=== PATIENT | female | born 1985 | race American Indian/Alaskan Native ===

== ENCOUNTER 2019-08-02 14:42 | Emergency (ER) | payer OTHER ==
--- NOTE | 2019-08-02 15:10 | Event Note ---
ED Screening Note Date of service: 08/02/19 Time: 15:08 ED Screening Note: 34 y o female presents with left sided pelvis pain x 3 days worsening with movement IUD in 2018 in [place] This initial assessment/diagnostic orders/clinical plan/treatment(s) is/are subject to change based on patients health status, clinical progression and re- assessment by fellow clinical providers in the ED. Further treatment and workup at subsequent clinical providers discretion. Patient/guardian urged not to elope from the ED as their condition may be serious if not clinically assessed and managed. Initial orders include: ua
[2019-08-02 16:03] LABS: Bilirubin,Urine NEG (Negative); Blood,Urine NEG (Negative); Color,Urine Yellow (Yellow); Mucus,Urine 1+ /HPF; Protein,Urine <15 mg/dL mg/dL (Negative)
[2019-08-02 21:26] LABS: Hematocrit 40.2 % (30.3-42.9); Hemoglobin 13.5 gm/dl (10.1-14.3); Mean Corpuscular HGB Conc 34 % (30-34); Mean Corpuscular Volume 97 fl (79-97); Platelet Count 299 K/mm3 (140-440); Red Blood Count 4.17 M/mm3 (3.65-5.03); Red Cell Distribution Width 13.1 % (13.2-15.2)
--- NOTE | 2019-08-02 23:03 | Ultrasound Report ---
EXAMINATION: Complete pelvic ultrasound, 08/02/2019 CLINICAL INFORMATION: Generalized pelvic pain COMPARISON: None. FINDINGS: Transvaginal and transabdominal evaluation was performed. The uterus is normal in size tracie uring 7.4 x 4.0 x 5.1 cm. An IUD is present. The bilateral adnexal regions appear within normal limits. There are bilateral adnexal cysts. The lar gest cyst on the right measures 1.7 cm and is mildly complicated. The largest cyst on the left measur es 1.9 cm. No free pelvic fluid is visualized. Doppler flow is demonstrated to both adnexal regions. IMPRESSION: 1. No sonographic evidence of acute intrapelvic abnormality. 2. Bilateral adnexal cysts. Signer Name: Katherine Lynn MD Signed: 08/02/2019 10:59 PM Workstation Name: [id number]
[2019-08-02] MEDS ORDERED: traMADol 50 MG TAB PO ONE (23:04)
--- NOTE | 2019-08-02 23:09 | Emergency Department Report ---
<MAJO UMANZOR - Last Filed: 08/02/19 23:29> ED Female HPI - General Chief complaint: Abdominal Pain Stated complaint: ABD PAIN/POSS IUD MISS PLACED Time Seen by Provider: 08/02/19 21:05 Source: patient Mode of arrival: Ambulatory Limitations: No Limitations - History of Present Illness Initial comments: PT is a 34 y/ o female who presents with left sided pelvis pain x 3 days , hx of ovarian cyst and IUD, pain is 3/10 cramping worsening with movement. IUD in 2018 in [place]. There is no fever or chills no n/v no back pain, no vaginal bleeding or discharge, pt is and not concerned for STI. pt requesting referral to [facility] for IUD Removal. LMP 2 weeks ago, could not fell string after menses completed. MD Complaint: pelvic pain, other Onset/Timin -: week(s), unknown (chronic over last 1 yr) Radiation: non-radiating Severity: mild Severity scale (0 -10): 3 Quality: cramping Consistency: intermittent Improves with: none Worsens with: movement Are you Now?: No Last Menstrual Period: 07/17/19 EDC: 04/22/20 - Related Data Sexually active: Yes : 1 Para: 1 A: 0 Previous Rx's Medication Instructions Recorded Last Taken Type traMADoL [Ultram] 50 mg PO Q6HR PRN #12 tablet 08/02/19 Unknown Rx Allergies Allergy/AdvReac Type Severity Reaction Status Date / Time amoxicillin Allergy Rash Verified 08/02/19 14:47 Penicillins Allergy Rash Verified 08/02/19 14:47 ED Review of Systems Constitutional: denies: chills, fever Eyes: denies: eye pain, eye discharge, vision change ENT: denies: ear pain, throat pain Respiratory: denies: cough, shortness of breath, wheezing Cardiovascular: denies: chest pain, palpitations Endocrine: no symptoms reported Gastrointestinal: denies: abdominal pain, nausea, diarrhea Genitourinary: denies: urgency, dysuria, frequency, hematuria, discharge, dyspareunia Musculoskeletal: denies: back pain, joint swelling, arthralgia Skin: denies: rash, lesions Neurological: denies: headache, weakness, paresthesias Psychiatric: denies: anxiety, depression Hematological/Lymphatic: as per HPI ED Past Medical Hx - Past Medical History Previous Medical History?: No - Surgical History Past Surgical History?: No - Social History Smoking Status: Never Smoker Substance Use Type: None - Medications Home Medications: Home Medications Medication Instructions Recorded Confirmed Last Taken Type traMADoL [Ultram] 50 mg PO Q6HR PRN #12 tablet 08/02/19 Unknown Rx ED Physical Exam - General Limitations: No Limitations General appearance: alert, in no apparent distress - Head Head exam: Present: atraumatic, normocephalic - Eye Eye exam: Present: normal appearance, EOMI - ENT ENT exam: Present: mucous membranes moist - Neck Neck exam: Present: normal inspection, full ROM. Absent: tenderness - Respiratory Respiratory exam: Present: normal lung sounds bilaterally. Absent: respiratory distress, wheezes - Cardiovascular Cardiovascular Exam: Present: regular rate, normal rhythm, normal heart sounds. Absent: systolic murmur, diastolic murmur, rubs, gallop - GI/Abdominal GI/Abdominal exam: Present: soft, normal bowel sounds. Absent: distended, tenderness, guarding, rebound, rigid, bruit, hernia - Rectal Rectal exam: Present: deferred - External exam: Present: other (deferred by patient ) - Extremities Exam Extremities exam: Present: normal inspection, full ROM. Absent: tenderness - Back Exam Back exam: Present: normal inspection, full ROM. Absent: tenderness, CVA tenderness (R), CVA tenderness (L) - Neurological Exam Neurological exam: Present: alert, oriented X3, CN II-XII intact, normal gait - Psychiatric Psychiatric exam: Present: normal affect, normal mood - Skin Skin exam: Present: warm ED Medical Decision Making - Lab Data Result diagrams: 08/02/19 21:15 - Radiology Data Radiology results: report reviewed, image reviewed Ordering Physician: MAJO UMANZOR NP Date of Service: 08/02/19 Procedure(s): US transvaginal Accession Number(s): [id number] cc: MAJO UMANZOR NP EXAMINATION: Complete pelvic ultrasound, 08/02/2019 CLINICAL INFORMATION: Generalized pelvic pain COMPARISON: None. FINDINGS: Transvaginal and transabdominal evaluation was performed. The uterus is normal in size measuring 7.4 x 4.0 x 5.1 cm. An IUD is present. The bilateral adnexal regions appear within normal limits. There are bilateral adnexal cysts. The largest cyst on the right measures 1.7 cm and is mildly complicated. The largest cyst on the left measures 1.9 cm. No free pelvic fluid is visualized. Doppler flow is demon strated to both adnexal regions. IMPRESSION: 1. No sonographic evidence of acute intrapelvic abnormality. 2. Bilateral adnexal cysts. Signer Name: Katherine Lynn MD Signed: 08/02/2019 10:59 PM Workstation Name: [id number] Transcribed By: ALCON Dictated By: Katherine Lynn MD Electronically Authenticated By: Katherine Lynn MD Signed Date/Time: 08/02/192258 DD/ 55 TD/TT: Ordering Physician: MAJO UMANZOR NP Date of Service: 08/02/19 Procedure(s): US pelvic complete Accession Number(s): [id number] cc: MAJO UMANZOR NP EXAMINATION: Complete pelvic ultrasound, 08/02/2019 CLINICAL INFORMATION: Generalized pelvic pain COMPARISON: None. FINDINGS: Transvaginal and transabdominal evaluation was performed. The uterus is normal in size measuring 7.4 x 4.0 x 5.1 cm. An IUD is present. The bilateral adnexal regions appear within normal limits. There are bilateral adnexal cysts. The largest cyst on the right measures 1.7 cm and is mildly complicated. The largest cyst on the left measures 1.9 cm. No free pelvic fluid is visualized. Doppler flow is demons trated to both adnexal regions. IMPRESSION: 1. No sonographic evidence of acute intrapelvic abnormality. 2. Bilateral adnexal cysts. Signer Name: Katherine Lynn MD Signed: 08/02/2019 10:59 PM Workstation Name: [id number] Transcribed By: ALCON Dictated By: Katherine Lynn MD Electronically Authenticated By: Katherine Lynn MD Signed Date/Time: 08/02/192258 DD/ 55 TD/TT: - Medical Decision Making US pelvic: IUD in endmetrial canal, no vaginal bleed, ua: normal, cbc: normal ,Hcg: neg, plan follow up with obgyn in 2 days for IUD problem. pt verbalized agreement and understanding of discharge plan. ED Disposition Clinical Impression: Ovarian cyst Qualifiers: Laterality: bilateral Qualified Code(s): N83.201 - Unspecified ovarian cyst, right side IUD complication Qualifiers: Device complication type: unspecified Encounter type: initial encounter Qualified Code(s): T83.9XXA - Unspecified complication of genitourinary prosthetic device, implant and graft, initial encounter Disposition: - TO HOME OR SELFCARE Is pt being admited?: No Does the pt Need Aspirin: No Condition: Stable Instructions: Ovarian Cyst (ED), Abdominal Pain (ED) Prescriptions: traMADoL [Ultram] 50 mg PO Q6HR PRN #12 tablet PRN Reason: Pain Referrals: MELISSA ESPINOSA MD [Referring] - 3-5 Days Forms: Work/School Release Form(ED) Time of Disposition: 23:32 <JUDI WEBSTER - Last Filed: 08/03/19 02:01> ED Review of Systems ROS: Stated complaint: ABD PAIN/POSS IUD MISS PLACED Other details as noted in HPI ED Course Vital Signs 08/02/19 08/02/19 08/02/19 15:06 23:31 23:53 Temperature 98.2 F 98.0 F Pulse Rate 76 64 Respiratory 18 18 18 Rate Blood Pressure 121/80 Blood Pressure 125/62 [Right] O2 Sat by Pulse 98 98 Oximetry ED Medical Decision Making - Lab Data Result diagrams: 08/02/19 21:15 - Medical Decision Making Attestation: Available for consultation Critical care attestation.: If time is entered above; I have spent that time in minutes in the direct care of this critically ill patient, excluding procedure time. ED Disposition Is pt being admited?: No
[2019-08-02 23:54] VITALS: BP 125/62
== END 2019-08-02 23:54 | disposition home or self-care (01) ==
LOC: ED 14:42
DX: N83.201 Unspecified ovarian cyst, right side (principal); T83.9XXA Unspecified complication of genitourinary prosthetic device, implant and graft, initial encounter; Z88.0 Allergy status to penicillin; Z88.1 Allergy status to other antibiotic agents; Z79.899 Other long term (current) drug therapy
CPT/HCPCS: 36415; 76830; 76856; 81001; 84702; 85027; 99284